=== PATIENT | male | born 1965 | race Caucasian/White ===

== ENCOUNTER 2019-12-21 10:33 | Emergency (ER) | payer SELFPAY ==
[~2019-12-21] VITALS: Ht 195.6 cm; Wt 104.3 kg
[2019-12-21] MEDS ORDERED: CYCLOBENZAPRINE 10 MG TABLET ONE (11:22)
[2019-12-21] MEDS ORDERED: KETOROLAC 60 MG/2 ML ONE (11:22)
[2019-12-21] MEDS ORDERED: HYDROmorphone 1 MG/ML, 1ML INJ ONE (11:22)
[2019-12-21] MEDS ORDERED: ONDANSETRON ODT 4 MG ONE (11:25)
[2019-12-21] MEDS ORDERED: HYDROmorphone 1 MG/ML, 1ML INJ IM ONE (11:30)
[2019-12-21] MEDS ORDERED: CYCLOBENZAPRINE 10 MG TABLET PO ONE (11:30)
[2019-12-21] MEDS ORDERED: KETOROLAC 30 MG/1 ML IM ONE (11:30)
--- NOTE | 2019-12-21 11:38 | NUR ---
PT RATES LBP AT 6/10, DESCRIBES "MUSCLE SPASMS". PT MEDICATED PER PROTOCOL WITH ZOFRAN FOR NAUSEA. MEDS GIVEN PER ERP ORDER. CRACKERS/WATER PROVIDED. CALL LIGHT WITHIN REACH, WARM BLANKET OFFERED.
[2019-12-21] MEDS ORDERED: ONDANSETRON ODT 4 MG PO PRN (12:00)
[2019-12-21 12:23] VITALS: BP 152/102
--- NOTE | 2019-12-21 12:23 | NUR ---
PT STATES HE'S FEELING BETTER, READY FOR DISCHARGE. NOTE TO ERP.
== END 2019-12-21 12:36 | disposition home or self-care (01) ==
LOC: ED 12:12
DX: M47.26 Other spondylosis with radiculopathy, lumbar region (principal); M54.5 Low back pain; R11.2 Nausea with vomiting, unspecified; R20.0 Anesthesia of skin
CPT/HCPCS: 96372; 99284; J1170; J1885; J7512; Q0162